=== PATIENT | male | born 2000 | race Caucasian/White ===

== ENCOUNTER 2020-05-12 09:43 | Emergency (ER) | payer OTHER ==
[~2020-05-12] VITALS: Ht 175.3 cm; Wt 63.5 kg
[2020-05-12 09:48] VITALS: Ht 175.3 cm; Wt 63.5 kg
[2020-05-12 10:29] VITALS: BP 111/55
== END 2020-05-12 10:29 | disposition home or self-care (01) ==
LOC: ED 09:43
DX: S30.0XXA Contusion of lower back and pelvis, initial encounter (principal); W22.8XXA Striking against or struck by other objects, initial encounter; Y93.67 Activity, basketball; Y92.310 Basketball court as the place of occurrence of the external cause; Y99.8 Other external cause status